=== PATIENT | female | born 1940 | race Caucasian/White ===

== ENCOUNTER 2024-12-30 14:24 | Emergency (ER) | payer MEDICARE ==
[2024-12-30 16:36] LABS: BASOPHILS ABSOLUTE AUTO 0.03 K/uL (0.00-0.10); BASOPHILS PERCENT AUTO 0.3 % (0.1-1.3); EOSINOPHILS PERCENT AUTO 0.0 % (0.0-5.4); IMMATURE GRAN ABSOLUTE AUTO 0.06 K/uL (0.00-0.23); IMMATURE GRAN PERCENT AUTO 0.6 % (0.0-0.7); LYMPHOCYTES ABSOLUTE AUTO 0.35 K/uL (0.8-3.3); LYMPHOCYTES PERCENT AUTO 3.6 % (11.4-47.7); MONOCYTES ABSOLUTE AUTO 0.47 K/uL (0.20-0.90); MONOCYTES PERCENT AUTO 4.9 % (3.3-12.6); NEUTROPHILS ABSOLUTE AUTO 8.76 K/uL (1.0-7.6); NEUTROPHILS PERCENT AUTO 90.6 % (40.0-78.1); PLATELET COUNT,PLT 148 K/uL (130-375); RED BLOOD CELL COUNT 3.93 M/uL (3.77-5.24); WHITE BLOOD CELL COUNT,WBC 9.7 K/uL (3.2-11.0)
[2024-12-30 16:37] LABS: EOSINOPHILS ABSOLUTE AUTO 0.00 K/uL (0.00-0.40)
[2024-12-30 16:58] LABS: A/G RATIO 0.9 (1.2-2.2); ALANINE AMINOTRANSFERASE,ALT 26 U/L (12-78); ASPARTATE AMNIOTRANSFERASE,AST 37 U/L (15-37); BILIRUBIN TOTAL 1.0 mg/dL (0.2-1.0); BLOOD UREA NITROGEN,BUN 20 mg/dL (7-18); CARBON DIOXIDE,CO2 28 mmol/L (21-32); CHLORIDE,CL 102 mmol/L (100-108); CREATININE 1.0 mg/dL (0.6-1.0); EST CRCL DRUG DOSING (CG) 41.45 mL/min; ESTIMATED GFR 56 mL/min (>60); GLUCOSE RANDOM 113 mg/dL (74-106); POTASSIUM,K 4.0 mmol/L (3.6-5.2); PROTEIN TOTAL,TP 7.1 g/dL (6.4-8.2); SODIUM,NA 139 mmol/L (140-148)
[2024-12-30 17:03] LABS: LACTIC ACID 1.3 mmol/L (0.4-2.0)
[2024-12-30] MEDS: Iopamidol 755 Mg/ML 100 ML Bottle IV ONE (19:23)
[2024-12-30] MEDS: Sodium Chloride 0.9% 10 ML Syringe FLUSH ONE (19:23)
[2024-12-30 20:24] VITALS: BP 133/53; PULSE 82
[2025-01-03 19:24] LABS: ANAPLASMA PHAGOCYTOPHILUM PCR Detected; BABESIA MICROTI BY PCR Not Detected; EHRLICHIA CHAFFEENSIS BY PCR Not Detected; EHRLICHIA EWINGII/CANIS BY PCR Not Detected; EHRLICHIA MURIS-LIKE BY PCR Not Detected
== END 2024-12-30 20:27 ==
LOC: JP.ED 14:24
DX: R42 Dizziness and giddiness (principal); R79.89 Other specified abnormal findings of blood chemistry; L23.7 Allergic contact dermatitis due to plants, except food; E78.00 Pure hypercholesterolemia, unspecified; Z79.82 Long term (current) use of aspirin; Z79.899 Other long term (current) drug therapy
CPT/HCPCS: 36415; 70450; 71275; 80053; 83605; 84484; 85025; 85379; 86140; 86618; 87040; 87468; 87469; 87484; 87798; 93005; 93010; 96360; 99285; J7030; Q9967